=== PATIENT | female | born 1995 | race Caucasian/White ===

== ENCOUNTER 2024-06-09 14:01 | Emergency (ER) | payer BC, MEDICAID, SELFPAY ==
[2024-06-09 14:23] VITALS: BP 121/70; PULSE 102; RESP 19; TEMP 36.7; O2SAT 97; BMI 32.5
--- NOTE | 2024-06-09 15:36 | ED_ITS ---
HPI - Abdominal Pain 2 General: Chief Complaint: Headache Stated Complaint: abd pain Time Seen by Provider: 06/09/24 15:30 Source: patient Mode of arrival: ambulatory Limitations: no limitations History of Present Illness: 28-year-old female who states that she i s currently 17 weeks she states that she has had multiple ultrasounds and updated her states that today she has been having slight headache she also been having some abdominal cramping feeling like she having contractions she denies any vaginal bleeding denies any discharge denies any fevers she has had some nausea. Associated Symptoms: Reports nausea; Denies chills, dysuria and fever(s) Related Data Home Medications ?Medication ?Instructions ?Recorded ?Confirmed folic acid 1 mg tablet 1 mg PO DAILY 06/09/2406/09 ondansetron 4 mg disintegrating 4 mg PO TID 06/09/24 0 06/09/24 tablet venlafaxine 75 mg capsule,extended 75 mg PO DAILY 05/1606/09/24 release 24 hr Previous Rx's ?Medication ?Instructions ?Recorded cephalexin 500 mg capsule 500 mg PO TID 7 days #21 cap s 06/09/24 metoclopramide HCl 10 mg tablet 10 mg PO Q6H PRN nause a and 06/09/24 (Reglan) vomiting #20 tabs Allergies Allergy/AdvReac Type Severity Reaction Status Date / Time amoxicillin Allergy ALGY-Rash Verified 06/09/24 14:27 latex Allergy ALGY-Rash Verified 06/09/24 14:27 Penicillins Allergy ALGY-Rash Verified 06/09/24 14:27 shellfish derived AdvReac ADR-Gastrointestinal Verified 06/09/24 14:27 Upset Review of Systems 2 Const: Denies: fever(s), chills, body aches or change in appetite ENMT: Denies: throat pain or dental pain Card: Denies: chest pain Resp: Denies: dyspnea GI: Reports: abdominal pain and nausea : Denies: dysuria Musc: Denies: neck pain or back pain Skin/Breast: Denies: rash Neuro: Reports: headache(s) Physical Exam 2 Const: COMMON NORMALS: no acute distress, patient oriented x3 and healthy appearing HENMT: COMMON NORMALS: normocephalic and atraumatic HEAD & SCALP: n ormocephalic and atraumatic Eye: COMMON NORMALS: conjunctivae normal CONJUNCTIVA: Yes conjunctivae normal Neck/C-Spine: COMMON NORMALS: full ROM and supple Chest: COMMONS NORMALS: normal inspection of the chest Resp: COMMON NORMALS: normal respiratory effort, No retractions, No use of accessory muscles and clear to auscultation bilaterally AUSCULTATION: clear to auscultation bilaterally Cardio: COMMON NORMALS: regular rate, regular rhythm and No murmurs present (Cardio) RATE: regular rate RHYTHM: regular rhythm GI: COMMON NORMALS: Normal to inspection, nondistended, normoactive bowel sounds present, Soft to palpation, non-tender and no masses PALPATION: Yes Soft to palpation Extremity: COMMON NORMALS: normal to inspection and full ROM Neuro: COMMON NORMALS: patient oriented x3, moves all extremities and no focal motor deficits Psych: COMMON NORMALS: mental status grossly normal, Normal thought process present and cooperative THOUGHT PROCESS: Normal thought process present Skin: COMMON NORMALS: no rashes or lesions noted and no wounds GENERAL SKIN EXAM: no rashes or lesions noted Course 2 Vital Signs: Vital signs: Vital Signs Temperature 98.1 F 06/09/24 14:23 Pulse Rate 95 06/09/24 15:48 Respiratory Rate 16 06/09/24 15:48 Blood Pressure 122/79 06/09/24 15:48 Pulse Oximetry 98 06/09/24 15:48 Oxygen Delivery Me thod Room Air 06/09/24 15:48 MDM - Abdominal Pain Medical Decision Making Patient presents here with headache along with abdominal cramping in I did a bedside ultrasound did show urine IUP consistent with dates heart rate 146 she does have a UTI abdominal exam here is benign she is stable for discharge we will place her on Reglan and Keflex. Medical Records I reviewed the patient's medical records. Lab Data I reviewed the patient's lab results. 06/09/24 15:15 06/09/24 15:15 Labs/Radiology: Laboratory Results WBC 9.05 10^3/uL (3.29-11.43) 06/09/24 15:15 RBC 3.84 10^6/uL (3.85-5.65) L 06/09/24 15:15 Hgb 11.30 g/dL (11.27-16.99) 06/09/24 15:15 Hct 33.9 % (36-47) L 06/09/24 15:15 MCV 88.3 fl (85-98) 06/09/24 15:15 MCH 29.4 pg (27-33) 06/09/24 15:15 MCHC 33.3 g/dL (30-55) 06/09/24 15:15 RDW 12.8 % (12.1-15.1) 06/09/24 15:15 Plt Count 244 10^3/cmm (157-399) 06/09/24 15:15 MPV 10.2 fL (7.4-10.4) 06/09/24 15:15 Neut % (Auto) 72.7 % 06/09/24 15:15 Lymph % (Auto) 17.7 % 06/09/24 15:15 [place] % (Auto) 6.6 % 06/09/24 15:15 Eos % (Auto) 2.5 % 06/09/24 15:15 Baso % (Auto) 0.2 % 06/09/24 15:15 Neut # (Auto) 6.57 10^3/uL (1.8-7.7) 06/09/24 15:15 Lymph # (Auto) 1.6 10^3/uL (0.8-4.8) 06/09/24 15:15 [place] # (Auto) 0.6 10^3/uL (0.2-0.9) 06/09/24 15:15 Eos # (Auto) 0.2 10^3/uL (0.0-0.8) 06/09/24 15:15 Baso # (Auto) 0.0 10^3/uL (0.0-0.1) 06/09/24 15:15 Nucleated RBC % (auto) 0 % 06/09/24 15:15 Nucleated RBCs # 0.0 /100WBC 06/09/24 15:15 Sodium 136 mmol/L (136-145) 06/09/24 15:15 Potassium 3.6 mmol/L (3.5-5.1) 06/09/24 15:15 Chloride 103 mmol/L (98-107) 06/09/24 15:15 Carbon Dioxide 22 mmol/L (22-29) 06/09/24 15:15 Anion Gap 14.6 (5-19) 06/09/24 15:15 BUN 6 mg/dL (6-20) 06/09/24 15:15 Creatinine 0.5 mg/dL (0.5-0.9) 06/09/24 15:15 GFR Calculation 146.9 mL/min (90-130) H 06/09/24 15:15 Glucose 76 mg/dL (65-115) 06/09/24 15:15 Calculated Osmolality 278 mOsm/kg (285-295) L 06/09/24 15:15 Calcium 8.7 mg/dL (8.5-10.5) 06/09/24 15:15 Total Bilirubin 0.2 mg/dL (0.15-1.2) 06/09/24 15:15 AST 12 U/L (0-32) 06/09/24 15:15 ALT 11 U/L (0-33) 06/09/24 15:15 Alkaline Phosphatase 41 U/L (35-105) 06/09/24 15:15 Total Protein 7.0 g/dL (6.6-8.7) 06/09/24 15:15 Albumin 3.9 g/dL (3.5-5.2) 06/09/24 15:15 Globulin 3.1 g/dL (1.3-4.6) 06/09/24 15:15 Lipase 26 U/L (13-60) 06/09/24 15:15 HCG, Qual Positive (Negative) H 06/09/24 15:15 Urine Color Yellow (Yellow) 06/09/24 15:33 Urine Appearance Clear (CLEAR) 06/09/24 15:33 Urine pH 6.0 (5-7) 06/09/24 15:33 Ur Specific Ross 1.018 (1.005-1.030) 06/09/24 15:33 Urine Protein Negative (Negative) 06/09/24 15:33 Urine Glucose (UA) Negative (Normal) 06/09/24 15:33 Urine Ketones Negative (Negative) 06/09/24 15:33 Urine Blood Negative (Negative) 06/09/24 15:33 Urine Nitrate Positive (Negative) A 06/09/24 15:33 Urine Bilirubin Negative (Negative) 06/09/24 15:33 Urine Urobilinogen 1.0 mg/dL (Negative) 06/09/24 15:33 Ur Leukocyte Esterase Negative (Negative) 06/09/24 15:33 Amorphous Sediment Not Reportable 06/09/24 15:33 No radiology studies performed this visit Discharge Plan Discharge Patient Disposition: Home Clinical Impression: Headache, Abdominal pain affecting , Acute cystitis Condition: Stable Prescriptions: New cephalexin 500 mg capsule 500 mg PO TID 7 Days Qty: 21 0RF metoclopramide HCl [Reglan] 10 mg tablet 10 mg PO Q6H PRN (Reason: nausea and vomiting) Qty: 20 0RF No Action venlafaxine 75 mg capsule,extended release 24hr 75 mg PO DAILY folic acid 1 mg tablet 1 mg PO DAILY ondansetron 4 mg tablet,disintegrating 4 mg PO TID Discharge Orders: Discharge ED (Routine); Ordered 06/09/24 Ordered By: Nic Arredondo Referrals: Vale Gutierrez MD [Primary Care Provider] - 4-7 days Discharge Diet: Advance as tolerated Discharge Activity: Resume usual activity Patient Instructions: Abdominal Pain in (ED), Urinary Tract Infection in (ED) Print Language: Greenlandic Coding Level of Care Code ED Last Sorter for Michelle Kelley
[2024-06-09] MEDS: metoclopramide 5 mg/mL SDV 2 mL 10 MG IVP (15:43)
[2024-06-09] MEDS: diphenhydrAMINE 50 mg/mL SDV 1mL IVP (15:47)
[2024-06-09 15:48] VITALS: BP 122/79; PULSE 95; RESP 16; O2SAT 98
[2024-06-09 15:49] LABS: Basophils % 0.2 %; Eosinophils # 0.2 10^3/uL (0.0-0.8); Eosinophils % 2.5 %; Hematocrit 33.9 % (36-47); Lymphocytes # 1.6 10^3/uL (0.8-4.8); Lymphocytes % 17.7 %; Mean Corpuscular HGB Conc 33.3 g/dL (30-55); Mean Corpuscular Hemoglobin 29.4 pg (27-33); Mean Corpuscular Volume 88.3 fl (85-98); Mean Platelet Volume 10.2 fL (7.4-10.4); Monocytes # 0.6 10^3/uL (0.2-0.9); Monocytes % 6.6 %; Neutrophils # 6.57 10^3/uL (1.8-7.7); Neutrophils % 72.7 %; Nucleated Red Blood Cells % 0 %; Platelet Count 244 10^3/cmm (157-399); Red Blood Count 3.84 10^6/uL (3.85-5.65); Red Cell Distribution Width 12.8 % (12.1-15.1); White Blood Count 9.05 10^3/uL (3.29-11.43)
[2024-06-09 16:01] LABS: HCG, Serum Qual Positive (Negative)
[2024-06-09 16:06] LABS: Alanine Aminotransferase 11 U/L (0-33); Albumin Level 3.9 g/dL (3.5-5.2); Alkaline Phosphatase 41 U/L (35-105); Anion Gap 14.6 (5-19); Aspartate Amino Transferase 12 U/L (0-32); Blood Urea Nitrogen 6 mg/dL (6-20); Calcium 8.7 mg/dL (8.5-10.5); Carbon Dioxide 22 mmol/L (22-29); Chloride 103 mmol/L (98-107); Creatinine Clr Calc Pharmacy 171.4245; Globulin 3.1 g/dL (1.3-4.6); Glomerular Filtration Rate 146.9 mL/min (90-130); Glucose 76 mg/dL (65-115); Lipase 26 U/L (13-60); Osmolality Calculated 278 mOsm/kg (285-295); Potassium 3.6 mmol/L (3.5-5.1); Sodium 136 mmol/L (136-145); Total Bilirubin 0.2 mg/dL (0.15-1.2)
[2024-06-09 16:07] LABS: Bilirubin Urine Negative (Negative); Blood Urine Negative (Negative); Glucose Urine UA Negative (Normal); Ketones Urine Negative (Negative); Leukocyte Esterase Urine Negative (Negative); Nitrate Urine Positive (Negative); Protein Urine Negative (Negative); Specific Gravity, Urine 1.018 (1.005-1.030); Urine Appearance Clear (CLEAR); Urine Color Yellow (Yellow)
[2024-06-09] MEDS: cefTRIAXone 1,000 mg SDV 1000 MG IVP (16:28)
[2024-06-09 16:30] VITALS: BP 121/86; PULSE 71; RESP 16; O2SAT 98
[2024-06-09 16:36] LABS: Add Urine Microscopic? YES; Bacteria Urine 3+ /hpf; Hyaline Casts Urine 0-4 /lpf; Mucus Urine TRACE /hpf; RBC Urine 0-4 /hpf (0-2); Squamous Epithelial Cell Urine 0-4 /hpf (0-5); UA Manual Slide Review YES; UA Slide Review UA Slide Review Perf; WBC Urine 0-4 /hpf (0-5)
[2024-06-09 16:37] LABS: Add Urine Culture? Yes
[2024-06-09 16:42] VITALS: BP 117/82; PULSE 76; O2SAT 98
== END 2024-06-09 16:43 | disposition home or self-care (01) ==
PROVIDERS: Physician Assistant; Emergency Provider Emergency Medicine; PCP Pediatrics
DX: R51.9 Headache, unspecified (principal); O26.892 Other specified pregnancy related conditions, second trimester; N30.00 Acute cystitis without hematuria; Z3A.17 17 weeks gestation of pregnancy
CPT/HCPCS: 80053; 81001; 83690; 84703; 85025; 87077; 87086; 87186; 96374; 96375; 99284; J0696; J1200; J2765